=== PATIENT | male | born 1940 | race Caucasian/White ===

== ENCOUNTER 2020-10-26 10:01 | Inpatient (IN) ==
[2020-10-26] MEDS ORDERED: SODIUM CHLORIDE 0.9% 1,000 ML IV STA ×2 (10:27→11:42)
[2020-10-26] MEDS ORDERED: PIPERACILLIN/TAZOBACTAM 3,375 MG in SODIUM CHLORIDE 0.9% 100 ML IV STA (10:27)
[2020-10-26 10:46] LABS: Basophils % 0.3 % (0.0-0.8); Eosinophils # 0.1 10*3/uL (0.0-0.87); Eosinophils % 1.1 % (0.00-10.9); Hematocrit 38.6 VOL% (42.0-52.0); Hemoglobin 12.7 GM/DL (14.0-18.0); Immature Granulocytes % 0.5 %; Immature Granulocytes Absolute 0.03 #; Lymphocytes # 0.7 10*3/uL (1.4-4.0); Lymphocytes % 10.5 % (21.2-54.2); Mean Corpuscular HGB Conc 32.9 GM/DL (32-36); Mean Corpuscular Volume 88.5 FL (87-102); Mean Platelet Volume 10.5 FL (9.6-12.0); Monocytes % 14.1 % (1.7-12.7); Neutrophils % 73.5 % (38.7-73.9); Platelet Count 251 T/CUMM (130-400); Red Blood Count 4.36 MC/CUMM (3.8-5.5); Red Cell Distribution Width 14.3 % (9.3-17.3); White Blood Count 6.6 T/CUMM (4-12)
[2020-10-26 11:11] LABS: Bilirubin,Total 0.7 MG/DL (0.2-1.0); Calcium 9.4 MG/DL (8.5-10.1); Osmolality,Calculated 286.1 MOS/KG (273-304); Potassium 4.7 MMOL/L (3.5-5.1); Total Protein 6.9 G/DL (6.4-8.2)
[2020-10-26 11:48] LABS: Sedimentation Rate-Westergren 65 MM/HR (0-20)
[2020-10-26] MEDS ORDERED: NOREPINEPHRINE 8 MG in SODIUM CHLORIDE 0.9% 242 ML IV PRN (12:27)
[2020-10-26] MEDS ORDERED: NOREPINEPHRINE 4 MG/4 ML VIAL IV ONE (12:28)
[2020-10-26] MEDS ORDERED: GLUCAGON 1 MG VIAL IM PRN (13:28)
[2020-10-26] MEDS ORDERED: DEXTROSE 50% 25 GM/50 ML VIAL IV PRN (13:28)
[2020-10-26] MEDS: ENOXAPARIN 30 MG/0.3 ML SYRINGE SUBCUT SCH (13:35)
[2020-10-26] MEDS: PIPERACILLIN/TAZOBACTAM 3,375 MG in SODIUM CHLORIDE 0.9% 100 ML IV SCH ×2 (13:42→20:04)
[2020-10-26] MEDS ORDERED: LACTATED RINGERS 1,000 ML IV STA (13:45)
[2020-10-26 14:25] VITALS: BP 100/63
[2020-10-26] MEDS: LACTATED RINGERS 1,000 ML IV SCH (14:56)
[2020-10-26] MEDS: INSULIN LISPRO 100 UNIT/ML SUBCUT SCH ×2 (16:03→20:03)
[2020-10-27] MEDS: LACTATED RINGERS 1,000 ML IV SCH ×2 (04:55→09:09)
[2020-10-27] MEDS: PIPERACILLIN/TAZOBACTAM 3,375 MG in SODIUM CHLORIDE 0.9% 100 ML IV SCH ×4 (04:56→20:15)
[2020-10-27 06:01] LABS: Basophils % 0.5 % (0.0-0.8); Eosinophils # 0.3 10*3/uL (0.0-0.87); Eosinophils % 5.2 % (0.00-10.9); Hematocrit 37.1 VOL% (42.0-52.0); Hemoglobin 12.1 GM/DL (14.0-18.0); Immature Granulocytes % 0.9 %; Immature Granulocytes Absolute 0.05 #; Lymphocytes # 0.8 10*3/uL (1.4-4.0); Lymphocytes % 13.6 % (21.2-54.2); Mean Corpuscular HGB Conc 32.6 GM/DL (32-36); Mean Corpuscular Volume 88.5 FL (87-102); Mean Platelet Volume 10.8 FL (9.6-12.0); Monocytes % 22.1 % (1.7-12.7); Neutrophils % 57.7 % (38.7-73.9); Platelet Count 244 T/CUMM (130-400); Red Blood Count 4.19 MC/CUMM (3.8-5.5); Red Cell Distribution Width 14.4 % (9.3-17.3); White Blood Count 5.8 T/CUMM (4-12)
[2020-10-27 06:24] LABS: Band Neutrophils 1 % (0-10); Eosinophils 5 % (0-10); Lymphocytes 12 % (20-55); Platelet Estimate Normal; Segmented Neutrophils 69 % (50-85); Total Cells Counted 100
[2020-10-27 06:28] LABS: Albumin 2.7 G/DL (3.4-5.0); Bilirubin,Total 0.8 MG/DL (0.2-1.0); Calcium 9.1 MG/DL (8.5-10.1); Osmolality,Calculated 286.4 MOS/KG (273-304); Potassium 4.7 MMOL/L (3.5-5.1); Total Protein 6.4 G/DL (6.4-8.2)
[2020-10-27] MEDS: INSULIN LISPRO 100 UNIT/ML SUBCUT SCH ×4 (07:29→20:14)
[2020-10-27] MEDS: carvediloL 12.5 MG TABLET PO SCH ×3 (11:00→20:14)
[2020-10-27] MEDS: ISOSORBIDE MONONITRATE 20 MG TABLET PO SCH ×3 (11:00→20:14)
[2020-10-27] MEDS: FUROSEMIDE 20 MG TABLET PO SCH (11:00)
[2020-10-27] MEDS: ASPIRIN EC 81 MG TABLET PO SCH (11:00)
[2020-10-27] MEDS: ENOXAPARIN 30 MG/0.3 ML SYRINGE SUBCUT SCH (12:38)
[2020-10-28] MEDS: PIPERACILLIN/TAZOBACTAM 3,375 MG in SODIUM CHLORIDE 0.9% 100 ML IV SCH (04:11)
[2020-10-28 05:52] LABS: Basophils % 0.7 % (0.0-0.8); Eosinophils # 0.4 10*3/uL (0.0-0.87); Eosinophils % 6.5 % (0.00-10.9); Hematocrit 38.1 VOL% (42.0-52.0); Hemoglobin 12.5 GM/DL (14.0-18.0); Immature Granulocytes % 0.7 %; Immature Granulocytes Absolute 0.04 #; Lymphocytes # 1.2 10*3/uL (1.4-4.0); Lymphocytes % 21.5 % (21.2-54.2); Mean Corpuscular HGB Conc 32.8 GM/DL (32-36); Mean Corpuscular Volume 88.2 FL (87-102); Monocytes % 14.9 % (1.7-12.7); Neutrophils % 55.7 % (38.7-73.9); Platelet Count 262 T/CUMM (130-400); Red Blood Count 4.32 MC/CUMM (3.8-5.5); Red Cell Distribution Width 14.1 % (9.3-17.3); White Blood Count 5.6 T/CUMM (4-12)
[2020-10-28 06:09] LABS: Albumin 2.9 G/DL (3.4-5.0); Bilirubin,Total 0.9 MG/DL (0.2-1.0); Calcium 9.6 MG/DL (8.5-10.1); Osmolality,Calculated 282.4 MOS/KG (273-304); Potassium 4.3 MMOL/L (3.5-5.1); Total Protein 6.7 G/DL (6.4-8.2)
[2020-10-28] MEDS: INSULIN LISPRO 100 UNIT/ML SUBCUT SCH ×4 (07:02→20:34)
[2020-10-28] MEDS ORDERED: HALOPERIDOL 5 MG/ML AMP ONE (07:41)
[2020-10-28] MEDS: HALOPERIDOL 5 MG/ML AMP IM PRN ×3 (08:45→11:00)
[2020-10-28] MEDS: carvediloL 12.5 MG TABLET PO SCH ×2 (08:52→20:34)
[2020-10-28] MEDS: FUROSEMIDE 20 MG TABLET PO SCH (08:52)
[2020-10-28] MEDS: ENOXAPARIN 40 MG/0.4 ML SYRINGE SUBCUT SCH (08:52)
[2020-10-28] MEDS: ROSUVASTATIN 20 MG TABLET PO SCH (08:52)
[2020-10-28] MEDS: ASPIRIN EC 81 MG TABLET PO SCH (08:52)
[2020-10-28] MEDS: ISOSORBIDE MONONITRATE 20 MG TABLET PO SCH ×3 (08:52→20:34)
[2020-10-28] MEDS ORDERED: ALPRAZolam 0.5 MG TABLET PO PRN (13:03)
[2020-10-29 05:22] LABS: Basophils # 0.1 10*3/uL (0.0-0.2); Basophils % 0.7 % (0.0-0.8); Eosinophils # 0.3 10*3/uL (0.0-0.87); Eosinophils % 4.4 % (0.00-10.9); Hematocrit 40.3 VOL% (42.0-52.0); Hemoglobin 12.9 GM/DL (14.0-18.0); Immature Granulocytes % 1.2 %; Immature Granulocytes Absolute 0.09 #; Lymphocytes # 1.6 10*3/uL (1.4-4.0); Lymphocytes % 21.4 % (21.2-54.2); Mean Corpuscular Volume 89.2 FL (87-102); Mean Platelet Volume 9.8 FL (9.6-12.0); Monocytes % 13.1 % (1.7-12.7); Neutrophils % 59.2 % (38.7-73.9); Platelet Count 318 T/CUMM (130-400); Red Blood Count 4.52 MC/CUMM (3.8-5.5); White Blood Count 7.7 T/CUMM (4-12)
[2020-10-29 05:55] LABS: Albumin 2.9 G/DL (3.4-5.0); Bilirubin,Total 0.7 MG/DL (0.2-1.0); Calcium 9.6 MG/DL (8.5-10.1); Osmolality,Calculated 286.1 MOS/KG (273-304); Potassium 4.5 MMOL/L (3.5-5.1); Total Protein 6.9 G/DL (6.4-8.2)
[2020-10-29] MEDS: FUROSEMIDE 20 MG TABLET PO SCH (08:39)
[2020-10-29] MEDS: ISOSORBIDE MONONITRATE 20 MG TABLET PO SCH (08:39)
[2020-10-29] MEDS: carvediloL 12.5 MG TABLET PO SCH (08:39)
[2020-10-29] MEDS: INSULIN LISPRO 100 UNIT/ML SUBCUT SCH ×2 (08:39→11:20)
[2020-10-29] MEDS: ASPIRIN EC 81 MG TABLET PO SCH (08:39)
[2020-10-29] MEDS: ROSUVASTATIN 20 MG TABLET PO SCH (08:39)
[2020-10-29] MEDS: ENOXAPARIN 40 MG/0.4 ML SYRINGE SUBCUT SCH (08:39)
== END 2020-10-29 11:52 | disposition home or self-care (01) | DRG 194 ==
LOC: N.ED 10:01 → N.EDINP 12:44 → SUATTDRO 12:44 → N.CC 13:50
PROVIDERS: ADMIT Family Medicine; ATTEND Internal Medicine